=== PATIENT | female | born 1945 | race Caucasian/White ===

== ENCOUNTER → 2017-01-18 | Outpatient (CLI) | payer OTHER ==
[~2017-01-18] MED LIST: ASPIR-LOW81 MG PO; CALCIUM CITRAT200 MG PO; CEPHALEXIN500 M1 PO; CLINDAMYCIN HC300 MG PO; LEVOTHYROXINE0.05 MG PO; PERCOCET 5/321 UDTAB PO; PREMPRO 0.625/21 TAB PO; PRESERVISION PO; SEPTRA DS 8001 TAB PO
== END ==
LOC: MC.RAD 10:28
DX: Z12.31 Encounter for screening mammogram for malignant neoplasm of breast (principal)

== ENCOUNTER → 2018-03-13 | Outpatient (CLI) | payer OTHER | LOC: MC.RAD 13:00 | DX: Z12.31 Encounter for screening mammogram for malignant neoplasm of breast (principal) ==

== ENCOUNTER → 2019-01-16 | Outpatient (CLI) | payer OTHER | LOC: MC.RAD 08:15 | DX: Z12.31 Encounter for screening mammogram for malignant neoplasm of breast (principal) ==

== ENCOUNTER → 2020-03-08 | Outpatient (CLI) | payer OTHER, MEDICARE | LOC: MC.RAD 08:56 | DX: Z12.31 Encounter for screening mammogram for malignant neoplasm of breast (principal) ==

== ENCOUNTER 2020-08-24 08:12 | Emergency (ER) | payer MEDICARE ==
[~2020-08-24] VITALS: Ht 157.5 cm; Wt 65.0 kg
[2020-08-24 08:17] VITALS: TEMP 98.2
[2020-08-24 08:52] LABS: EOS # 0.1 (0.0-0.7); EOS % 2.3 % (0-4.0); GRAN # 1.8 (1.4-6.5); HEMATOCRIT 48.3 % (37.0-47.0); HEMOGLOBIN 15.6 g/dl (12.5-16.0); LYMPH # 1.6 (1.2-3.4); LYMPH % 40.2 % (20.0-51.0); MEAN CELL VOLUME 87 fl (80.0-100.0); MEAN CORPUSCULAR HEMOGLOBIN 28 pg (27.0-31.0); MEAN CORPUSCULAR HGB CONC 32 g/dl (33.0-37.0); MEAN PLATELET VOLUME 10.5 fl (7.4-10.4); MONO # 0.4 (0.1-0.6); MONO % 11.2 % (1.7-9.3); PLATELET COUNT 211 K/mm3 (130-400); RED BLOOD COUNT 5.54 M/mm3 (4.10-5.30); REDCELL DISTRIBUTION WIDTH-CV 13.9 % (11.5-14.5)
[2020-08-24 08:53] LABS: COLLECTION METHOD CLEAN CATCH
[2020-08-24 09:02] LABS: ALBUMIN 4.5 gm/dL (3.5-5.0); CALCIUM 9.6 mg/dL (8.4-10.2); CREATININE, serum 1.06 (0.52-1.25); POTASSIUM 3.8 mmol/L (3.4-5.0); TOTAL PROTEIN 7.4 gm/dL (6.4-8.2)
[2020-08-24 09:02] LABS: MUCOUS Present /lpf; PH 5 (5-8); SQUAMOUS EPITHELIAL 0-2 /hpf; URINE APPEARANCE Hazy; URINE BACTERIA None Seen /hpf; URINE BILIRUBIN Negative (NEGATIVE); URINE BLOOD 3+ (NEGATIVE); URINE COLOR Yellow; URINE GLUCOSE Negative (NEGATIVE); URINE KETONE Negative (NEGATIVE); URINE LEUKOCYTE ESTERASE 1+ (NEGATIVE); URINE NITRATE Negative (NEGATIVE); URINE PROTEIN(semi-quant) 1+ (NEGATIVE); URINE RBC >50 /hpf; URINE UROBILINOGEN Negative (NEGATIVE)
[2020-08-24] MEDS ORDERED: FLOMAX 0.40.4 MG/CAP PO (10:52)
[2020-08-24] MEDS ORDERED: NORCO 325 MG-51 TAB PO (10:52)
[2020-08-24] MEDS ORDERED: CIPRO 500MG TA500 MG PO (10:52)
[2020-08-24] MEDS ORDERED: ZOFRAN ODT4 MG PO (10:52)
[2020-08-24 11:06] VITALS: BP 139/79; PULSE 70
== END 2020-08-24 11:06 | disposition home or self-care (01) ==
LOC: COL.ER 08:12
PROVIDERS: Emergency Medicine
DX: N20.1 Calculus of ureter (principal); Z88.0 Allergy status to penicillin; Z79.82 Long term (current) use of aspirin
CPT/HCPCS: J1885; J2405; J7030; Q9967

== ENCOUNTER → 2021-05-09 | Outpatient (CLI) | payer MEDICARE ==
[~2021-05-09] MED LIST changes: +CIPRO 500MG TA500 MG PO; +FLOMAX 0.40.4 MG/CAP PO; +NORCO 325 MG-51 TAB PO; +ZOFRAN ODT4 MG PO
== END ==
LOC: MC.RAD 08:15
DX: Z12.31 Encounter for screening mammogram for malignant neoplasm of breast (principal)

== ENCOUNTER → 2021-10-17 | Outpatient (CLI) | payer MEDICARE | LOC: ZCOL.LAB 16:14 | PROVIDERS: Family Medicine | DX: R19.7 Diarrhea, unspecified (principal) ==

== ENCOUNTER → 2022-07-30 | Outpatient (CLI) | payer MEDICARE | LOC: COL.RAD 10:44 | DX: I10 Essential (primary) hypertension (principal) ==

== ENCOUNTER → 2024-03-06 | Outpatient (CLI) | payer MEDICARE | LOC: MC.RAD 07:54 | DX: Z12.31 Encounter for screening mammogram for malignant neoplasm of breast (principal) ==